=== PATIENT | male | born 2000 | race Caucasian/White ===

== ENCOUNTER → 2023-05-09 09:47 | Outpatient (BNVA) | payer MEDICAID, SELFPAY | PROVIDERS: Visit Provider Family Medicine | DX: Z13.6 Encounter for screening for cardiovascular disorders (principal) | CPT/HCPCS: 80053; 80061; 85025 ==

== ENCOUNTER → 2023-07-24 10:54 | Outpatient (BNVA) | payer OTHER, SELFPAY | PROVIDERS: Visit Provider Psychiatry & Neurology Psychiatry | DX: F33.1 Major depressive disorder, recurrent, moderate (principal); F84.0 Autistic disorder; F41.1 Generalized anxiety disorder | CPT/HCPCS: 80061; 83036 ==

== ENCOUNTER → 2024-08-05 14:10 | Outpatient (BNVA) | payer OTHER, SELFPAY ==
[2024-07-22 09:37] VITALS: BP 137/83; BMI 32.5
== END ==
PROVIDERS: PCP Family Medicine; Visit Provider Psychiatry & Neurology Psychiatry
DX: F33.1 Major depressive disorder, recurrent, moderate (principal)
CPT/HCPCS: 80061; 83036

== ENCOUNTER → 2025-07-19 10:52 | Outpatient (BNVA) | payer OTHER, SELFPAY ==
[2024-09-27 10:31] VITALS: BP 126/78; BMI 30.8
== END ==
PROVIDERS: PCP Family Medicine; Visit Provider Psychiatry & Neurology Psychiatry
DX: F33.1 Major depressive disorder, recurrent, moderate (principal); F41.1 Generalized anxiety disorder
CPT/HCPCS: 80061; 83036